=== PATIENT | female | born 1985 | race Caucasian/White ===

== ENCOUNTER 2021-08-01 20:47 | Outpatient (CLI) | payer BC, SELFPAY ==
[2021-08-01 21:04] VITALS: BP 118/76; PULSE 61; RESP 18; TEMP 36.9; O2SAT 98; BMI 27.4
== END 2021-08-01 21:55 | disposition home or self-care (01) ==
LOC: OBOUT 20:54 → OB 20:55
PROVIDERS: PCP Obstetrics & Gynecology; Visit Provider Obstetrics & Gynecology
DX: O26.893 Other specified pregnancy related conditions, third trimester (principal); Z3A.36 36 weeks gestation of pregnancy; M25.512 Pain in left shoulder; M25.552 Pain in left hip; W10.9XXA Fall (on) (from) unspecified stairs and steps, initial encounter
CPT/HCPCS: 59025; G0463

== ENCOUNTER 2021-08-01 22:01 | Emergency (ER) | payer BC, SELFPAY ==
[2021-08-01 22:02] VITALS: BP 118/73; PULSE 74; RESP 18; TEMP 36.5; O2SAT 100; BMI 29.9
--- NOTE | 2021-08-01 22:43 | XR_ITS ---
PROCEDURE INFORMATION: Exam: XR Left Shoulder Exam date and time: 08/01/2021 10:43 PM Age: 35 years old Clinical indication: Injury or trauma; Fall; Blunt trauma (contusions or hematomas); Shoulder; Left; Injury date: 08/01/2021; Additional info: Fall pain left shoulder TECHNIQUE: Imaging protocol: XR Left shoulder. Views: 2 or more views. Total images: 3 COMPARISON: No relevant prior studies available. FINDINGS: Bones/joints: Mild-moderate leftward convexity upper thoracic scoliosis. No fractures. Glenohumeral alignment is normal. A.C. joint alignment is normal. No blastic or lytic lesions. Adjacent ribs and lung parenchyma are unremarkable. Pleural space: No visible pleural effusion or pneumothorax. Soft tissues: No gross soft tissue abnormalities. IMPRESSION: 1. No acute findings. 2. Mild-moderate leftward convexity upper thoracic scoliosis.
--- NOTE | 2021-08-01 23:10 | XR_ITS ---
PROCEDURE INFORMATION: Exam: XR Chest Exam date and time: 08/01/2021 11:10 PM Age: 35 years old Clinical indication: Left-sided; Patient HX: Fell pain left shoulder/left chest; Additional info: Fall TECHNIQUE: Imaging protocol: XR of the chest. Views: 2 views. Total images: 2 COMPARISON: CR XR SHOULDER LT MIN 2V 08/01/2021 10:40 PM FINDINGS: Lungs: Normal pulmonary expansion. Pulmonary vasculature grossly normal. No gross pulmonary infiltrates or edema pattern. Pleural spaces: No pleural effusion. Minimal apical pleural thickening bilaterally. No pneumothorax. Heart/Mediastinum: Heart size normal. No tracheal/mediastinal shift. Bones/joints: No acute osseous abnormalities are identified. Mild-moderate leftward convexity upper thoracic scoliosis. IMPRESSION: No acute thoracic process.
--- NOTE | 2021-08-01 23:16 | HMH.EDFALL ---
ED Disposition Clinical Impression: Pain in scapula Qualifiers: Weeks of gestation: 36 weeks Qualified Code(s): Z3A.36 - 36 weeks gestation of Disposition: Home, Self-Care Condition on Discharge: Good Instructions: DI for Shoulder Pain Additional Instructions: ice and call ob in am Referrals: Provider,Referral, [Primary Care Provider] - - Critical Care Critical Care Time: No Attestation: On 08/01/21, the high probability of a clinically significant, sudden or life threatening deterioration of the following system(s) required my full and direct attention, intervention and personal management. The time I documented below is in addition to time spent performing reported procedures but includes the following listed in this critical care notation. Medical Decision Making - Medical Records Medical records reviewed: Yes: I reviewed the patient's medical records. - Dangelo Inquiry Pt receiving controlled substance: No Vital Signs: 08/01/21 22:02 Temperature 97.7 F Temperature Source Oral Pulse Rate [Left] 74 Respiratory Rate 18 Blood Pressure [Right Arm] 118/73 Blood Pressure Mean [Right Arm] 88 02 Sat by Pulse Oximetry 100 Oxygen Delivery Method Room Air - Lab Data Lab results reviewed: Yes: I reviewed the patient's lab results. Orders (Tests/Meds): ORDERS Category Date Time Status Chest XR 2 view (NOT portable) [XR chest 2V] Stat Exams 08/01/21 23:10 Taken XR shoulder LT min 2V Stat Exams 08/01/21 22:43 Taken - Radiology Data #1 Image(s): Chest, Shoulder Image Reviewed: Yes I have reviewed radiologist's interpretation Preliminary Findings: No Fracture Seen Medical Decision Narrative: was seen by ob and stable exam and xrays - conservative treatment at this time Fall HPI - General Chief Complaint: Extremity Injury, Upper Stated Complaint: Preg Fell 08/01 L arm shoulder Time Seen by Provider: 08/01/21 23:17 Mode of Arrival: EMS Source of Information: Patient, EMS, Medical Record Limitations: No Limitations Description of Symptoms (Recalled from ER Triage Doc. by RN): pt was brought in by ems taken to OB for clearance then brought here for evaluation of the left shoulder after fall off stairs pt reports to have slipped and fallen on her back hurt her left shoulder and hip. pt is 36 week 5 days . - History of Present Illness HPI Narrative: pt with trip type fall and has lt scapular pain complaint: fall Onset (ago): hour(s) Fall from: walking Fall witnessed: yes, by family Place fall occurred: home Loss of consciousness: none Prolonged down time: no Context: tripped/slipped Location of injury: chest Location of injury - extremities: Left: shoulder Severity: moderate Associated symptoms (after fall): denies - Related Data Home Medications Medication Instructions Recorded Confirmed Insulin Lispro [Humalog] 6 units SQ BID 08/01/21 08/01/21 Allergies Allergy/AdvReac Type Severity Reaction Status Date / Time No Known Allergies Allergy Verified 08/01/21 21:46 [facility] History - Hepatitis A Screen Drug use history?: No High risk sexual behaviors?: No History of sexually transmitted infection?: No Currently employed?: No Childcare worker?: No Do you have indoor plumbing?: Yes Do you have electricity?: Yes Attestation statement:: This patient has been screened for Hepatitis A risk factors. I have reviewed the patient's past medical history: Yes Other Surgeries: No: - Social History Occupational Status: employed Para: 2 ROS Obtained: Yes All systems reviewed & no additional complaints - Constitutional Constitutional: Denies fever(s) - Eyes Eyes: Denies change in vision - ENT Ears, Nose, Mouth, and Throat: Denies sore throat - Cardiovascular Cardiovascular: Denies chest pain - Respiratory Respiratory: Denies shortness of breath - Gastrointestinal Gastrointestingal: Denies: abdominal
[2021-08-02 00:31] VITALS: BP 118/73; PULSE 88; RESP 16; TEMP 36.7; O2SAT 99
== END 2021-08-02 00:34 | disposition home or self-care (01) ==
PROVIDERS: Emergency Provider Emergency Medicine
DX: M25.512 Pain in left shoulder (principal); Z3A.36 36 weeks gestation of pregnancy; W10.9XXA Fall (on) (from) unspecified stairs and steps, initial encounter; Y92.019 Unspecified place in single-family (private) house as the place of occurrence of the external cause
CPT/HCPCS: 71046; 73030; 99282

== ENCOUNTER 2023-11-14 07:06 | Outpatient (CLI) | payer OTHER, SELFPAY ==
[2023-11-14 07:43] LABS: Basophils # 0.1 K/mm3 (0-0.2); Eosinophils # 0.1 K/mm3 (0.0-0.4); Eosinophils % 2.1 % (0.1-12.0); Hematocrit 44.6 % (37.0-47.0); Hemoglobin 14.3 g/dL (12.2-16.2); Lymphocytes # 1.5 K/mm3 (0.7-4.5); Lymphocytes % 24.6 % (10-50); Mean Corpuscular HGB Conc 32.1 g/dL (31.8-35.4); Mean Corpuscular Hemoglobin 31.2 pg (27.0-31.2); Mean Corpuscular Volume 97.2 fl (81-99); Mean Platelet Volume 8.7 fl (7.4-10.4); Monocytes # 0.3 K/mm3 (0.1-1.0); Monocytes % 5.7 % (1.7-9.3); Neutrophils % 66.5 % (37.0-80.0); Platelet Count 298 K/mm3 (142-424); Red Blood Count 4.59 M/mm3 (4.20-5.40); Red Cell Distribution Width 13.1 % (11.5-17.5); White Blood Count 5.9 K/mm3 (4.8-10.8)
[2023-11-14 07:58] LABS: Alanine Aminotransferase 14 U/L (12-78); Albumin/Globulin Ratio 1.5 (1.1-1.8); Alkaline Phosphatase 55 U/L (38-126); Anion Gap 10.3 mEq/L (5-15); Aspartate Amino Transferase 22 U/L (14-36); Bilirubin,Total 0.5 mg/dl (0.2-1.3); Blood Urea Nitrogen 12 mg/dl (7-17); Carbon Dioxide 28 mmol/L (22.0-30.0); Chloride 106 mmol/L (98-107); Estimated Glomerular Filt Rate 80 ml/min (>60); GFR (African American) 97 ML/MIN (>60); Globulin 2.6 g/dL (1.3-3.2); Glucose 88 mg/dl (74-100); Potassium 4.3 mmoL/L (3.5-5.1); Sodium 140 mmol/L (136-145); Total Protein,Serum 6.6 g/dl (6.3-8.2)
[2023-11-14 08:04] LABS: C-Reactive Protein 0.7 mg/L (0-4)
[2023-11-14 12:29] LABS: Iron 83 ug/dL (37-170)
[2023-11-14 12:39] LABS: Total Iron Binding Capacity 335 ug/dL (265-497)
[2023-11-14 16:04] LABS: Ferritin 18.3 ng/ml (6.24-137)
[2023-11-17 10:13] LABS: QuantiFERON-TB Gold Plus Negative (Negative)
== END 2023-11-14 23:59 ==
LOC: LAB 07:09
PROVIDERS: Visit Provider Dietitian, Registered
DX: K50.813 Crohn's disease of both small and large intestine with fistula (principal); Z86.39 Personal history of other endocrine, nutritional and metabolic disease
CPT/HCPCS: 36415; 80053; 82728; 83540; 83550; 85025; 86140; 86480

== ENCOUNTER 2024-03-28 07:35 | Outpatient (CLI) | payer OTHER, SELFPAY ==
[2024-03-28 08:20] LABS: Basophils # 0.1 K/mm3 (0-0.2); Eosinophils # 0.2 K/mm3 (0.0-0.4); Eosinophils % 2.7 % (0.1-12.0); Hematocrit 37.6 % (37.0-47.0); Hemoglobin 14.5 g/dL (12.2-16.2); Lymphocytes # 1.4 K/mm3 (0.7-4.5); Lymphocytes % 25.8 % (10-50); Mean Corpuscular HGB Conc 38.4 g/dL (31.8-35.4); Mean Corpuscular Volume 96.2 fl (81-99); Mean Platelet Volume 8.5 fl (7.4-10.4); Monocytes # 0.4 K/mm3 (0.1-1.0); Neutrophils # 3.5 K/mm3 (1.8-7.8); Neutrophils % 63.4 % (37.0-80.0); Platelet Count 297 K/mm3 (142-424); Red Blood Count 3.91 M/mm3 (4.20-5.40); Red Cell Distribution Width 13.1 % (11.5-17.5); White Blood Count 5.5 K/mm3 (4.8-10.8)
[2024-03-28 11:10] LABS: Alanine Aminotransferase 13 U/L (12-78); Albumin Level 4.1 g/dl (3.5-5.0); Albumin/Globulin Ratio 1.4 (1.1-1.8); Alkaline Phosphatase 58 U/L (38-126); Anion Gap 14.3 mEq/L (5-15); Aspartate Amino Transferase 24 U/L (14-36); Bilirubin,Total 0.7 mg/dl (0.2-1.3); Blood Urea Nitrogen 14 mg/dl (7-17); Calcium 9.2 mg/dl (8.4-10.2); Carbon Dioxide 26 mmol/L (22.0-30.0); Chloride 103 mmol/L (98-107); Estimated Glomerular Filt Rate 80 ml/min (>60); GFR (African American) 97 ML/MIN (>60); Glucose 66 mg/dl (74-100); Potassium 4.3 mmoL/L (3.5-5.1); Sodium 139 mmol/L (136-145); Total Protein,Serum 7.1 g/dl (6.3-8.2)
[2024-03-28 11:15] LABS: C-Reactive Protein 1.6 mg/L (0-4)
[2024-03-30 17:11] LABS: QuantiFERON-TB Gold Plus Negative (Negative)
== END 2024-03-28 23:59 | disposition home or self-care (01) ==
PROVIDERS: Visit Provider Dietitian, Registered
DX: K50.813 Crohn's disease of both small and large intestine with fistula (principal); Z79.899 Other long term (current) drug therapy
CPT/HCPCS: 36415; 80053; 85025; 86140; 86480

== ENCOUNTER 2024-05-21 07:38 | Emergency (ER) | payer OTHER, SELFPAY ==
[2024-05-21 07:40] VITALS: BP 132/86; PULSE 98; RESP 16; TEMP 36.9; O2SAT 100; BMI 24.3
--- NOTE | 2024-05-21 07:45 | PC.NURSE ---
Dr. Marquez at [facility] for pt eval
--- NOTE | 2024-05-21 07:51 | HMH.EDGENADL ---
Discharge Plan Disposition Patient Disposition: Home, Self-Care Prescriptions Prescriptions: New ondansetron 4 mg tablet,disintegrating 4 mg PO Q6H PRN (Reason: nausea and vomiting) 5 Days Qty: 20 0RF nitrofurantoin monohyd/m-cryst 100 mg capsule 100 mg PO BID 5 Days Qty: 10 0RF Rx Instructions: must administer with a meal/food No Action insulin lispro 100 UNIT/ML cartridge 6 units SQ BID Referrals Follow up/Referrals: Provider,Referral, MD [Primary Care Provider] - See instructions Activity Restrictions/Add. Instructions Additional Instructions/Restrictions: Your symptoms are consistent with an uncomplicated urinary tract infection. If you develop a high fever or flank discomfort as discussed please return to the emergency department or with your primary care doctor as that may imply an ascending infection involving your kidneys which would warrant a different medication. Also if you have any significant worsening of your abdominal pain please seek further care. Clinical Impressions Clinical Impression: Nausea, UTI (urinary tract infection) Instructions Patient Instructions: DI for Urinary Tract Infection (UTI), DI for Urinary Tract Infection in Children Print Language Print Language: Croatian Discharge ED Provider: Jace Marquez General Adult HPI General Chief complaint: Urogenital-Female Stated complaint: possible UTI nausea dry heaving Time Seen by Provider: 05/21/24 07:44 Mode of Arrival: Ambulatory Source of Information: Patient Limitations: No Limitations Description of Symptoms (Recalled from ER Triage Doc. by RN): Patient reports she thinks that she has a UTI. States that she has urgency and nausea. History of Present Illness HPI narrative: Patient is a 38-year-old female presents today with what she believes is a urinary tract infection. She states that yesterday she began having some urinary urgency and some back discomfort. No significant pain but states that she has had some discomfort in the left lower back region. She has had some waves of nausea but no significant pain. Denies any dysuria frequency but states that her urinary urgency is different than normal. She has a history of Crohn's disease on Stelara but denies any significant abdominal pain diarrhea fevers chills etc. She also has a history of a hysterectomy. Related Data Home Medications ?Medication ?Instructions ?Recorded ?Confirmed insulin lispro 100 unit/mL 6 units SQ BID gestational diabetes 08/01/21 08/01/21 subcutaneous cartridge Previous Rx's ?Medication ?Instructions ?Recorded nitrofurantoin 100 mg PO BID 5 days #10 caps 05/21/24 monohydrate/macrocrystals 100 mg capsule ondansetron 4 mg disintegrating 4 mg PO Q6H PRN nausea and 05/21/24 tablet vomiting 5 days #20 tabs Allergies Allergy/AdvReac Type Severity Reaction Status Date / Time No Known Allergies Allergy Verified 08/01/21 21:46 [facility] Disclaimer: The information contained in this section may have been updated after the patient was seen, as this information can be updated by other users. Social History Smoking Status: Current every day smoker alcohol intake: never current occupational status: employed Travel in the last 8 weeks: None ROS Obtained: Yes All systems reviewed & no additional complaints except as documented Physical Exam General General appearance: alert Respiratory Respiratory exam: Present normal lung sounds bilaterally Cardiovascular Cardiovascular exam: Present regular rate Abdominal Exam Abdominal exam: Present soft; Absent distention or tenderness Back Exam Back exam: Absent CVA tenderness (R) or CVA tenderness (L) Neurological Exam Neurological exam: Present alert and oriented X3 Medical Decision Making Dangelo Inquiry Pt receiving controlled substance: No Vital Signs: 05/21/24 07:40 Temperature 98.4 F Temperature Source Oral Pulse Rate [Radial] 98 H Respiratory Rate 16 Blood Pressure [Right Arm] 132/86 Blood Pressure Mean [Right Arm] 101 Blood Pressure Source [Right Arm] Automatic Cuff Blood Pressure Position [Right Arm] Sitting 02 Sat by Pulse Oximetry 100 Oxygen Delivery Method Room Air Lab Data Lab results reviewed: Yes I reviewed the patient's lab results. Lab Results 05/21/24 07:42: Urine Color Yellow, Urine Appearance Cloudy, Urine pH 6.0, Ur Specific [place] >= 1.030, Urine Protein 1+ A, Urine Glucose (UA) Negative, Urine Ketones 2+, Urine Blood 3+ A, Urine Nitrate Negative, Urine Bilirubin 2+ A, Urine Urobilinogen 0.2, Ur Leukocyte Esterase 2+ A, Urine RBC 3-5, Urine WBC 20-50, Ur Squamous Epith Cells 10-20, Urine Bacteria 2+ Orders (Tests/Meds): ED MEDICATIONS Discontinued Medications Generic Name Dose Route Start Last Admin Trade Name Freq PRN Reason Stop Dose Admin Ondansetron HCl 4 mg 05/21/24 07:49 05/21/24 07:52 Ondansetron 4mg Odt SL 05/21/24 07:50 4 mg ONCE ONE Administration ORDERS Category Date Time Status POCUS Point of Care (ER Only) Stat Exams 05/21/24 08:19 Ordered UA [Urinalysis and Microscopic] Stat Lab 05/21/24 07:42 Completed Urine Culture Stat Micro 05/21/24 07:42 Received Medical Decision Narrative: Well-appearing nontoxic 38-year-old female with no evidence of sepsis clinically presents today with lower back discomfort and urinary urgency most likely a urinary tract infection. Abdominal exam is benign will this could be intra-abdominal pathology this is unlikely at the moment will not work this up further. I do not believe this is a Crohn's exacerbation, bowel obstruction etc. She does not have any fever or CVA tenderness does not appear to have renal involvement at this point. Urinalysis is pending will reassess. Urinalysis returned and is consistent with a urinary tract infection. There is significant hematuria I did a limited bedside ultrasound to make sure there is not a significant hydronephrosis which that was not making infected kidney stone very unlikely. This will be treated as uncomplicated urinary tract infection. Zofran prescription also sent. Patient tolerating p.o. well-appearing nontoxic upon being discharged. Procedures Miscellaneous Procedure Procedure Performed: Limited renal ultrasound Indication: A focused ultrasound of the kidneys was performed to evaluate for hydronephrosis and nephrolithiasis. The ultrasound was performed with the following indications, as noted in the H&P: Hematuria Identified structures: Left kidney Findings: No evidence of hydronephrosis Impression: Normal left kidney Images were saved to permanent archive The study was technically adequate CPT: 41747-70 This study was performed by me, and I personally interpreted all images/videos. Based on my clinical judgement, these images were adequate and did not necessitate further imaging. Critical Care Critical Care Time Critical Care Time: No
[2024-05-21] MEDS: ONDANSETRON 4MG ODT 4 MG SL (07:52)
[2024-05-21 07:56] LABS: Microscopic, Urine URINE MICROSCOPIC (MICROSCOPIC)
[2024-05-21 07:58] LABS: Appearance,Urine CLOUDY (Clear); Blood, Urine 3+ (Negative); Color,Urine YELLOW (Yellow); Glucose,Urine (UA) Negative (Negative); Ketones,Urine 2+ (Negative); Leukocyte Esterase,Urine 2+ (Negative); Nitrate,Urine Negative (Negative); Protein,Urine 1+ (Negative); Specific Gravity, Urine >= 1.030 (1.005-1.030); Urobilinogen,Urine 0.2 EU/dl (0.2)
[2024-05-21 08:00] VITALS: BP 118/77; PULSE 87; O2SAT 99
[2024-05-21 08:17] LABS: Bilirubin,Urine 2+ (Negative)
[2024-05-21 08:18] LABS: Bacteria,Urine 2+ /lpf; WBC,Urine 20-50 #/hpf (0-3)
[2024-05-21 08:32] VITALS: BP 118/77; PULSE 69; RESP 16; TEMP 36.9; O2SAT 99
--- NOTE | 2024-05-22 09:42 | PC.NURSE ---
discussed urine culture with , pt dc with macrobid, ntd
== END 2024-05-21 08:32 | disposition home or self-care (01) ==
PROVIDERS: Emergency Provider Student in an Organized Health Care Education/Training Program
DX: N39.0 Urinary tract infection, site not specified (principal); B96.29 Other Escherichia coli [E. coli] as the cause of diseases classified elsewhere; R11.0 Nausea; R39.15 Urgency of urination
CPT/HCPCS: 81001; 87086; 87088; 87186; 99284; Q0162

== ENCOUNTER 2025-02-09 15:49 | Emergency (ER) | payer OTHER, SELFPAY ==
--- NOTE | 2025-02-09 15:52 | ED_ITS ---
<Statement entered by Jace Marquez MD - 02/09/25 23:25> I was consulted by the KETTY, and we discussed the complexity of the problems being addressed. I approved the treatment and management plan for this patient's care in the emergency department, thus performing a substantive portion of the medical decision making. Jace Marquez MD, JACE, FACEP Discharge Plan Disposition Patient Disposition: Home, Self-Care Condition: Good Prescriptions Prescriptions: No Action insulin lispro 100 UNIT/ML cartridge 6 units SQ BID ondansetron 4 mg tablet,disintegrating 4 mg PO Q6H PRN (Reason: nausea and vomiting) 5 Days Qty: 20 0RF nitrofurantoin monohyd/m-cryst 100 mg capsule 100 mg PO BID 5 Days Qty: 10 0RF Rx Instructions: must administer with a meal/food Referrals Follow up/Referrals: Provider,Referral, [Primary Care Provider, Medical] - See instructions Activity Restrictions/Add. Instructions Additional Instructions/Restrictions: As we discussed please keep your area clean dry and covered. Do not get your hand wet for at least 24 hours. After that it is okay. If you have any new or worsening signs or symptoms or begins rebleeding you may return to the emergency department as needed. Clinical Impressions Clinical Impression: Avulsion of finger tip Qualifiers: Encounter type: initial encounter Qualified Code(s): S61.209A - Unspecified open wound of unspecified finger without damage to nail, initial encounter Instructions Patient Instructions: DI for Laceration Repair Print Language Print Language: Hungarian Discharge ED Provider: Jace Marquez General Adult HPI General Chief complaint: Wound/Laceration Stated complaint: AO 6-1 Cut right ring finger Time Seen by Provider: 02/09/25 15:52 History of Present Illness HPI narrative: Patient presents for evaluation of a laceration to her right fourth finger. Patient was using a knife to cut food and sliced off the tip of her right fourth finger. She did not get into the nailbed or matrix. However she was unable to control the bleeding so they came to the emergency department for evaluation. Patient denies any numbness tingling loss of motor or sensory. Related Data Home Medications ?Medication ?Instructions ?Recorded ?Confirmed insulin lispro 100 unit/mL 6 units SQ BID gestational diabetes 08/01/21 08/01/21 subcutaneous cartridge Previous Rx's ?Medication ?Instructions ?Recorded nitrofurantoin 100 mg PO BID 5 days #10 cap s 05/21/24 monohydrate/macrocrystals 100 mg capsule ondansetron 4 mg disintegrating 4 mg PO Q6H PRN nausea and 05/21/24 tablet vomiting 5 days #20 tabs Allergies Allergy/AdvReac Type Severity Reaction Status Date / Time No Known Allergies Allergy Verified 08/01/21 21:46 [facility] Disclaimer: The information contained in this section may have been updated after the patient was seen, as this information can be updated by other users. Social History (Updated 05/21/24 @ 08:27 by Jace Marquze MD) Smoking Status: Current every day smoker alcohol intake: never current occupational status: employed Travel in the last 8 weeks?: None Have you lived/traveled outside US in past 30 days?: No Contact w/someone who lives/traveled outside US past 30 days?: No Exposure to someone with infectious disease in past 14 days?: No Do you have a fever (greater than 100.4 F or 38 C)?: No Have you tested positive for COVID-19?: No Exposed to someone with COVID-19 in past 14 days?: No Do you have a sore throat?: No Do you have a cough?: No Do you have any weakness?: No Do you have any diarrhea?: No Are you experiencing any unusual bleeding?: No Do you have any muscle aches/pain?: No Do you have any abdominal pain?: No Are you experiencing loss of taste or smell?: No Other Medical History Have you received the Flu Vaccine for this season: Yes Have you received the Pneumonia Vaccine: No ROS Obtained: Yes Systems reviewed as appropriate & no additional complaints except as documented Physical Exam General General appearance: alert and in no apparent distress Respiratory Respiratory exam: Present normal lung sounds bilaterally Cardiovascular Cardiovascular exam: Present regular rate Neurological Exam Neurological exam: Present alert and oriented X3 Medical Decision Making Medical Records Screening: Per USPSTF and CDC recommendations, given the prevalence of disease in our region, it is our hospital?s policy to screen for HIV and viral Hepatitis for all patients aged 18 and over and those with ongoing risk factors. Dangelo Inquiry Pt receiving controlled substance: No Vital Signs: 02/09/25 15:56 Temperature 97.9 F Temperature Source Oral Pulse Rate [Left Radial] 96 H Respiratory Rate 20 Blood Pressure [Right Arm] 131/78 Blood Pressure Mean [Right Arm] 95 02 Sat by Pulse Oximetry 99 Oxygen Delivery Method Room Air Orders (Tests/Meds): ED MEDICATIONS Generic Name Dose Route Start Last Admin Trade Name Freq PRN Reason Stop Dose Admin Lidocaine/Epinephrine 3 ml 02/09/25 16:20 Lidocaine 1% W/Epi 1:100,000 20ml Vial SQ 02/09/25 16:21 ONCE ONE Tetanus/Reduced Diphtheria/Acell Pertussis 0.5 ml 02/09/25 16:20 Tet/Diphth/Pert-Adult 0.5ml Syringe IM 02/09/25 16:21 .ONCE ONE Discontinued Medications Generic Name Dose Route Start Last Admin Trade Name Freq PRN Reason Stop Dose Admin Silver Nitrate 1 each 02/09/25 16:10 Silver Nitrate Applicator TP 02/09/25 16:11 ONCE ONE Medical Decision Narrative: In summary patient is a 39-year-old female who presents to the emergency department for evaluation of right fourth finger laceration. Patient is hemodynamically stable upon arrival, afebrile. Physical exam is remarkable for a laceration to the very distal tip of her right fourth finger. The laceration is perpendicular to the length of the finger there is no bony exposure however the distal fat pad is visible. Patient is neurovascularly intact nailbed is intact she has full range of motion. Differential diagnosis includes possible open fracture etc. however there is no red flags and to suggest that this is anything other than a simple superficial laceration thus alternative diagnosis is were not pursued. Initial workup was considered with imaging however again there are no red flags to suggest deeper involvement thus no further workup is required. I initially tried to control bleeding with direct pressure however patient could not tolerate it due to pain. Then infiltrated 3 cc of lidocaine with epinephrine and once we had adequate anesthesia I was able to slow down bl eeding with direct pressure however not enough. I then attempted Surgicel which would was not able to achieve hemostasis and ultimately I had to use a silver nitrate stick and finally was able to control the bleeding. Once hemostasis was achieved I then placed Surgicel on top of it and applied a dry dressing that was nonocclusive. Thus patient is appropriate for discharge after her Tdap has been updated she was given wound care and strict return precautions. Procedures Laceration Laceration 1: Site: finger (Right fourth) Side (If applicable): right Size (cm): 0.05 Description: other (Fingertip avulsion) Depth: simple, single layer and involves subcutaneous layer Local Anesthetic: lidocaine 1% and with epi Amount of anesthesia used (mL): 3 Pre-repair: wound explored, irrigated extensively and deep structures intact Skin layer closed with: other (Silver nitrate fulguration) Critical Care Critical Care Time Critical Care Time: No
[2025-02-09 15:56] VITALS: BP 131/78; PULSE 96; RESP 20; TEMP 36.6; O2SAT 99; BMI 23.6
[2025-02-09] MEDS: SILVER NITRATE APPLICATOR 1 EACH TP (16:25)
[2025-02-09] MEDS: TET/DIPHTH/PERT-ADULT 0.5ML SYRINGE 0.5 ML IM (16:32)
[2025-02-09] MEDS: LIDOCAINE 1% W/EPI 1:100,000 20ML VIAL 3 ML SQ (16:35)
[2025-02-09 16:39] VITALS: BP 140/78; PULSE 80; RESP 20; TEMP 36.8; O2SAT 98
== END 2025-02-09 16:40 | disposition home or self-care (01) ==
PROVIDERS: Emergency Provider Student in an Organized Health Care Education/Training Program
DX: S61.204A Unspecified open wound of right ring finger without damage to nail, initial encounter (principal); W26.0XXA Contact with knife, initial encounter; Z23 Encounter for immunization
CPT/HCPCS: 17250; 90471; 90715; 99283

== ENCOUNTER 2025-02-20 13:58 | Outpatient (CLI) | payer OTHER, SELFPAY ==
--- OUTSIDE RECORDS SUMMARY | 2025-01-22 13:20 | XMS_ITS | Encounter Summary ---
Author Organization [facility] Address [address] [place] [address] Care Team Providers Care Front Line Supervisor Name Role Phone Jayson Hoyt Primary Care Provider Reason for Referral * Imaging (Routine) - Pending Review Specialty Diagnoses / Procedures Referred By Shadi watson Referred To Contact Gastroenterology Diagnoses Crohn's disease of both small and large intestine with fistula (CMS/HCC) Long-term current use of ustekinumab History of resection of terminal ileum Procedures Colonoscopy Mansi Méndez PA [address] [facility] [address] [place] [address] Phone: tel: fax: Referral ID Status Reason Start Date Expiration Date Visits Requested Visits Authorized [id number] Pending Review Specialty Services Required 01/22/2025 07/24/2026 1 1 * Consultation (Routine) - Authorized Specialty Diagnoses / Procedures Referred By Shadi watson Referred To Contact Diagnoses Crohn's disease of both small and large intestine with fistula (CMS/HCC) Mansi Méndez PA [address] [facility] [address] [place] [address] Phone: tel: fax: Referral ID Status Reason Start Date Expiration Date V isits Requested Visits Authorized [id number] Authorized 01/22/2025 07/24/2026 1 1 Reason for Visit * Reason Comments Crohn's Disease Encounter Details Date Type Department Care Team (Late st Contact Info) Description 01/22/2025 1:20 PM EDT Office Visit [facility] [address] [place] [address] Mansi Méndez PA [address] [place] [address] Crohn's disease of both small and large intestine with fistula (CMS/HCC) (Primary Dx); Long-term current use of ustekinumab; History of resection of terminal ileum; Low serum vitamin B12 Social History Tobacco Use Types Packs/Day Years Used Date Smoking Tobacco: Former Cigarettes 1 24 0 09/11/1994 - 09/11/2018 Passive Smoke Exposure: Past Smokeless Tobacco: Never Comments:Vapor Alcohol Use Standard Drinks/Week Comments No 0 (1 standard drink = 0.6 oz pur e alcohol) PHQ-2 Answer Date Recorded Patient Health Questionnaire-2 Score 0 01/22/2025 PHQ-9 Answer Date Recorded Patient Health Questionnaire-9 Score 0 01/22/2025 PHQ-2A Answer Date Recorded Depression Risk 0 10/18/2022 Comments No Sex and Gender Information Value Date Recorded Sex Assigned at Female 03/25/2021 6:04 AM EDT Legal Sex Female 6:39 PM EDT Gender Identity Female 03/25/2021 6:04 AM EDT Sexual Orientation Straight 05/27/2022 7: 26 AM EDT documented as of this encounter Last Filed Vital Signs Vital Sign Reading Time Taken Comments Blood Pressure - - Pulse - - Temperature - - Respiratory Rate - - Oxygen Saturation - - Inhaled Oxygen Concentration - - Weight 73.9 kg (163 lb) 01/22/2025 1:04 PM EDT Height 175.3 cm (5' 9 ) 01/22/2025 1:04 PM EDT Body Mass Index 24.07 01/22/2025 1:04 PM EDT documented in this encounter Functional Status * Over the past 2 weeks, how often have you been bothered by any of the following problems? Question Answer Date of Assessment Author Little interest or pleasure in doing things Not at all 01/22/2025 1:03 PM Rosy Borrego Feeling down, depressed, or hopeless Not at all 01/22/2025 1:03 PM Rosy Borrego Patient Health Questionnaire -2 Score 0 01/22/2025 1:03 PM Rosy Borrego * Question Answer Date of Assessment Author Trouble falling or staying asleep, or sleeping too much Not at all 01/22/2025 1:03 PM Rosy Borrego Feeling tired or having kaci le energy Not at all 01/22/2025 1:03 PM Rosy Borrego Poor appetite or overeating Not at all 01/22/2025 1: 03 PM Rosy Borrego Feeling bad about yourself - or that you are a failure or have let yourself or your family down Not at all 01/22/2025 1:03 PM MARTIT Rosy Reddy Trouble concentrating on thi ngs, such as reading the newspaper or watching television Not at all 01/22/2025 1:03 PM Rosy Borrego Moving or speaking so slowly that other people could have noticed? Or the opposite - being so fidgety or restless that you have been moving around a lot more than usual. Not at all 01/22/2025 1:03 PM Rosy Borrego Thoughts that you would be b dwight off or hurting yourself in some way Not at all 01/22/2025 1:03 PM Rosy Borrego Patient Health Questionnaire -9 Score 0 01/22/2025 1:03 PM Rosy Borrego * If you checked off any problems on this questionnaire so far, Question Answer Date of Assessment Author How difficult have these problems made it for you to do your work, take care of things at home, or get along with other people? Not difficult at all 01/22/2025 1:03 PM Rosy Borrego documented as of this encounter Miscellaneous Notes * Progress Notes - Mansi Méndez, GILMER - 01/22/2025 1:20 PM EDT Telehealth Visit Subjective Patient ID: Aleksandra Deleon is a 39 y.o. female. Chief Complaint Patient presents with Crohn's Disease HPI The following portions of the chart were reviewed this encounter and updated as appropriate: Tobacco Allergies Meds Problems Med Hx Surg Hx Fam Hx Ms. Deleon is a pleasant 39 y/o F with fistulizing/stricturing Crohn's disease involving the TI and cecum, which was diagnosed in ~ 2008. She is s/p ileo- cecectomy secondary to SBO 04/16/2014 and perianal fistula s/p seton. Initially tx with humira, was bad not to take, later on cimiza +/- imuran, lost insurance/moved. Later on entyvio, but did not respond, changed to Stelara 07/2019. She underwent colonoscopy 06/2020 showing active inflammation at anastomotic site. At that time, Stelara was increased to q4 weeks. S/p seton exchange 03/25/21 and debridement of anal fistula with Dr. Barron. S/p C-scope 08/18/21 c/b GDM. Had EUA with Dr. Chavez CRS in May 2022 with removal seton. Had lap Hyst in March 2022 Previously co vaginal flatus ordered MR Pelvis fistula protocol 12/04/23No evidence of rectovaginal fistulas. A likely focus of infection/inflammation of the anal gland with a possible developing abscess in the left posterior quadrant at approximately 5 o'clock. No sinus tract or fistula formation. Pt was given cipro flagyl and referral to CRS and had EUA 12/29/[address] Barron who noted: No abscess or fistula Recent labs noted at OSH: 12/04/23 negative TB gold C-scope 06/29/2020: - The examined portion of the ileum was normal. Biopsied. - Patent end-to-side ileo-colonic anastomosis, characterized by edema, erosion, friable mucosa and inflammation. Biopsied. - The entire examined colon is normal. Biopsied. A. TERMINAL ILEUM, BIOPSY: - NO DIAGNOSTIC ABNORMALITY. B. COLON, RANDOM BIOPSIES: - NO DIAGNOSTIC ABNORMALITY. C. ANASTOMOSIS, BIOPSY: - ACTIVE INFLAMMATION AND ULCERATION. - NO GRANULOMAS IDENTIFIED. RUQ US 10/20/21: No suspicious focal liver lesions are detected. Small lesion seen on recent CT is not clearly visualized on ultrasound. CTE 09/30/21: Eccentric mural thickening involving a loop of jejunum in the left posterior mid abdomen. No surrounding inflammation. No free or loculated fluid collections. Small hepatic hypodensity, slightly larger than on 06/26/2020. This may represent a small cyst. This could be further assessed with ultrasound. EGD 08/08/22 Overall Impression: The esophagus appeared normal. Z-line 35 cm from the incisors 3 cm hiatal hernia. No evidence of Zack ulcers. The stomach appeared normal. The duodenal bulb and 2nd part of the duodenum appeared normal. Performed random biopsy using biopsy forceps to rule out celiac disease. C-scope 08/08/22 excellent prep The neoterminal ileum appeared normal. Performed random biopsy using biopsy forceps. The entire colon appeared normal. Healthy end-to-side ileocolonic anastomosis A. DUODENUM, BIOPSY: - NO PATHOLOGIC ABNORMALITY - NO EVIDENCE OF VILLOUS ABNORMALITY OR INTRAEPITHELIAL LYMPHOCYTOSIS B. SMALL INTESTINE, NEOTERMINAL ILEUM, BIOPSY: - NO PATHOLOGIC ABNORMALITY; NO EVIDENCE OF IBD (HISTORY OF CROHN DISEASE) - NEGATIVE FOR DYSPLASIA OR GRANULOMAS Recently had bidirectional d/t ROYCE, no concerning findings. Not taking oral iron much, thinks ROYCE d/t heavy menses now s/p LIA in March 2023 Good compliance w/ Stelara q 4wk, Today: remains on Stelara q 4wk Insurance requires biosimilar soon Having BM daily. Dairy and salads can trigger BM/ pudding to watery like stool. No melena or hematochezia No abd pain, NV. No recurrent infections or fevers. No rectal pain or discharge. No passage of air vaginally Appetite good, wt stable. Good about compliance with B12 IM and notes more energy. No dysphagia. Had a brief episodes of reflux lately. Stopped smoking, now vapes. Review of Systems Constitutional: Negative for fever and unexpected weight change. HENT: Negative for mouth sores and sore throat. Respiratory: Negative for shortness of breath. Cardiovascular: Negative for chest pain. Gastrointestinal: Positive for diarrhea (if eats trigger). Negative for abdominal pain, blood in stool, nausea and vomiting. Musculoskeletal: Negative for arthralgias. Skin: Negative for rash. Objective Physical Exam General Appearance: appears comfortable, NAD, alert HENT: AT/NC Eyes: no scleral icterus Pulmonary: no cough or audible wheezing, respirations unlabored MSK- active ROM upper extremities Integumentary: no jaundice Neurological: face is symmetric, speech is clear, responds appropriately to questions Psych: calm, appropriate affect Visit Vitals Ht 1.753 m (5' 9 ) Wt 73.9 kg (163 lb) BMI 24.07 kg/m?? Tb gold 03/28/24 negative. Alb, cr, hgb, crp wnl. Assessment/Plan Diagnoses and all orders for this visit: Crohn's disease of both small and large intestine with fistula (CMS/HCC) - Quantiferon TB Gold Plus; Future - C-Reactive Protein, Plasma; Future - Comprehensive Metabolic Panel, Plasma; Future - Calprotectin, Fecal by Immunoassay; Future - CBC and Differential; Future - Follow Up GI; Future - Colonoscopy; Future Long-term current use of ustekinumab - Quantiferon TB Gold Plus; Future - C-Reactive Protein, Plasma; Future - Comprehensive Metabolic Panel, Plasma; Future - Calprotectin, Fecal by Immunoassay; Future - CBC and Differential; Future - Colonoscopy; Future History of resection of terminal ileum - Colonoscopy; Future Low serum vitamin B12 - cyanocobalamin (Vitamin B-12) 1000 MCG/ML injection; Inject 1 mL into the muscle every 30 days. - Syringe/Needle, Disp, (BD Eclipse Syringe/Needle) 25G X 5/8 3 ML misc; 1 Syringe every 30 days. For IM B12 Ms. Deleon is a 39YO F with history of severe Crohn's disease, complicated by usman-anal fistula, s/p fistulectomy,hx of SBO 2014 s/p IC resection. MRE 11/22/22 No definite evidence of active bowel inflammation or penetrating disease. Patent ileocolonic anastomosis without evidence of active inflammation. continue Stelara injections q4 week, clinically doing well In past had c/o vaginal flatus (resolved) MR Pelvis fistula protocol 12/04/23No evidence of rectovaginal fistulas. A likely focus of infection/inflammation of the anal gland with a possible developing abscess in the left posterior quadrant at approximately 5 o'clock. No sinus tract or fistula formation. Pt was given cipro flagyl and referral to CRS , had EUA. 12/29/23 No abscess or fistula currently taking Cipro and Flagyl having some loose stools past couple of days. Will add on C diff in comp GI panel likely this adverse effect of antibiotic patient reports is mild small volume we stool. Routine monitoring of CMP/CBC w/diff on current drug therapy stelara q 4wk (will start biosimilar soon), monitoring liver/renal function as well as possible cytopenias- due for labs will order CMP/CBC/CRP and calprotectin - orders to be faxed to [facility] TB gold negative 03/28/2024- will order. labs 03/28/24 normal hgb, plt, cr, crp, hepatic function panel In endoscopic remission on c-scope 07/2022. 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 -Follow up with PCP for monitoring of small renal cysts noted on CT. had colonoscopy 08/08/22, Dr. Adam recommend a repeat colonoscopy in approximately 3 years. (Will order at follow up) Is rescheduled to see hepatology 08/22/24 for Hepatic cyst in the left hemiliver measuring 1.2 cm on imaging will let me know when does labs at [facility] Cscope in fall with IBD provider RTC via w mon-mon in 6months crohns. Sooner if needed Telehealth Statement Patient Verification Patient identity has been confirmed using name and date of ? Yes Authorizations and Agreements/Telemedicine Consent sent and consent confirmed? Yes Patient Location: Home/Other Patient confirms they are physically located in [place]? Yes If the patient is not physically located in [place], the provider has confirmed with [employer] thatthe provider is authorized to provide services in patient's stated location? N/A Provider Location: home Audio and video or audio only? Audio and video Total visit time: 20 minutes documented in this encounter Plan of Treatment Upcoming Encounters Date Type Department Care Team (Late st Contact Info) Description 07/25/2025 8:20 AM EST Office Visit [facility] Medicine Specialties [address] [place] [address] Mansi Méndez, GILMER [address] [place] [address] Scheduled Orders Name Type Priority Associated Diagnoses Orde r Schedule Quantiferon TB Gold Plus Lab Routine Crohn's disease of both small and large intestine with fistula (CMS/HCC) Long-term current use of ustekinumab Expected: 01/22/2025 (Approximate), Expires: 07/25/2026 C-Reactive Protein, Plasma Lab Routine Crohn's disease of both small and large intestine with fistula (CMS/HCC) Long-term current use of ustekinumab Expected: 01/22/2025 (Approximate), Expires: 07/25/2026 Comprehensive Metabolic Panel, Plasma Lab Routine Crohn's disease of both small and large intestine with fistula (CMS/HCC) Long-term current use of ustekinumab Expected: 01/22/2025 (Approximate), Expires: 07/25/2026 Calprotectin, Fecal by Immunoassay Lab Routine Crohn's disease of both small and large intestine with fistula (CMS/HCC) Long-term current use of ustekinumab Expected: 01/22/2025 (Approximate), Expires: 07/25/2026 CBC and Differential Lab Routine Crohn's disease of both small and large intestine with fistula (CMS/HCC) Long-term current use of ustekinumab Expected: 01/22/2025 (Approximate), Expires: 07/25/2026 Colonoscopy Endoscopy Routine Crohn's disease of both small and large intestine with fistula (CMS/HCC) Long-term current use of ustekinumab History of resection of terminal ileum Expected: 01/22/2025, Expires: 01/22/2026 Scheduled Referrals Name Type Priority Associated Diagnoses Orde r Schedule Follow Up GI Outpatient Referral Routine Crohn's disease of both small and large intestine with fistula (CMS/HCC) Expected: 07/25/2025, Expires: 02/22/2026 documented as of this encounter Visit Diagnoses Diagnosis Crohn's disease of both small and large intestine with fistula (CMS/HCC)- Primary Long-term current use of ustekinumab History of resection of terminal ileum Low serum vitamin B12 documented in this encounter Additional Health Concerns Assessment Noted Time PHQ-9 Depression Total Score: 0 01/23/20 25 1:03 PM EDT A fall risk assessment has been complete d for the patient 01/22/2025 1:04 PM EDT A Body Mass Index follow-up plan has been documented for the patient 01/23/2025 12:43 PM EDT documented as of this encounter Care Teams Front Line Supervisor Relationship Specialty Start Date End Date Jayson Hoyt PA [address] [place] [address] PCP - General 01/22/21 documented as of this encounter
[2025-02-20 14:34] LABS: Basophils % 0.4 % (0.1-2.0); Eosinophils # 0.1 Kmm3 (0.0-0.4); Eosinophils % 0.7 % (0.1-12.0); Hematocrit 43.2 % (37.0-47.0); Hemoglobin 14.5 g/dL (12.2-16.2); Immature Granulocytes # 0.02 10^3uL; Immature Granulocytes % 0.2 %; Lymphocytes # 1.5 K/mm3 (0.7-4.5); Lymphocytes % 16.2 % (10-50); Mean Corpuscular HGB Conc 33.6 g/dL (31.8-35.4); Mean Corpuscular Hemoglobin 31.4 pg (27.0-31.2); Mean Corpuscular Volume 93.5 fl (81-99); Mean Platelet Volume 10.3 fl (7.4-10.4); Monocytes # 0.6 K/mm3 (0.1-1.0); Monocytes % 5.8 % (1.7-9.3); Neutrophils # 7.3 K/mm3 (1.8-7.8); Neutrophils % 76.7 % (37.0-80.0); Nucleated Red Blood Cells # 0 10^3/uL; Nucleated Red Blood Cells % 0 %; Platelet Count 319 K/mm3 (142-424); Red Blood Count 4.62 M/mm3 (4.20-5.40); Red Cell Distribution Width 12.3 % (11.5-17.5); Red Cell Distribution Width-SD 41.9 fL; White Blood Count 9.5 K/mm3 (4.8-10.8)
--- OUTSIDE RECORDS SUMMARY | 2025-02-20 14:52 | XMS_ITS | Encounter Summary ---
Author Organization [facility] Address [address] [place] [address] Care Team Providers Care Manager Of Software Name Role Phone Jayson Hoyt Primary Care Provider Encounter Details Date Type Department Care Team (Latest Contact Info) Description 01/22/2025 Travel Social History Tobacco Use Types Packs/Day Years [...] AM EDT documented as of this encounter Functional Status * Over the past 2 weeks, how often have you been bothered by any of the following problems? Question Answer Date of Assessment Author Little interest or pleasure in doing things Not at all 01/22/2025 1:03 PM EDT Rosy Elena Feeling down, depressed, or hopeless Not at all 01/22/2025 1:03 PM EDT Rosy Elena Patient Health Questionnaire -2 Score 0 01/22/2025 1:03 PM EDT Rosy Elena * Question Answer Date of Assessment Author Trouble falling or staying asleep, or sleeping too much Not at all 01/22/2025 1:03 PM Rosy Borrego Feeling tired or having kaci le energy Not at all 01/22/2025 1:03 PM EDT Rosy Elena Poor appetite or overeating Not at all 01/22/2025 1: 03 PM EDT Rosy Elena Feeling bad about yourself - or that you are a failure or have let yourself or your family down Not at all 01/22/2025 1:03 PM EDT Rosy Reddy Trouble concentrating on thi ngs, such as reading the newspaper or watching television Not at all 01/22/2025 1:03 PM MARTIT Rosy Elena Moving or speaking so slowly that other [...] Rosy Borrego documented as of this encounter Plan of Treatment Upcoming Encounters Date Type Department Care Team (Late st Contact Info) Description 07/25/2025 8:20 AM EST Office Visit [facility] Medicine Specialties [address] [place] [address] Mansi Méndez M, GILMER [address] [place] [address] documented as of this encounter Visit Diagnoses Not on filedocumented in this encounter Additional Health Concerns Assessment Noted Time PHQ-9 Depression Total Score: 0 01/23/20 25 1:03 PM EDT A fall risk assessment has been complete d for the patient 01/22/2025 1:04 PM EDT A Body Mass Index follow-up plan has been documented for the patient 01/23/2025 12:43 PM EDT documented as of this encounter Care Teams Manager Of Software Relationship Specialty Start Date End Date Jayson Hoyt PA [address] [place] [address] PCP - General 01/22/21 documented as of this encounter
--- OUTSIDE RECORDS SUMMARY | 2025-02-20 14:52 | XMS_ITS | Encounter Summary ---
Author Organization Healthcare Address [address] [place] [address] Care Team Providers Care Internet Sourcer Name Role Phone Jayson Hoyt Primary Care Provider Reason for Visit * Reason Comments Med Refill Encounter Details Date Type Department Care Team (Late st Contact Info) Description 12/06/2021 Refill [facility] Medicine Specialties [address] [place] [address] Amadou Adam MD [address] [place] [address] Crohn's disease of both small and large intestine with fistula (CMS/HCC) Social History Tobacco Use Types Packs/Day Years Used Date Smoking Tobacco: Former Smokeless Tobacco: Never Comments:Vapor Alcohol Use Standard Drinks/Week Comments No 0 (1 standard drink = 0.6 oz pur e alcohol) PHQ-2 Answer Date Recorded Patient Health Questionnaire-2 Score 0 03/23/2021 Comments Yes Sex and Gender Information Value Date Recorded Sex Assigned at Female 03/25/2021 6:04 AM EDT Legal Sex Female 6:39 PM EDT Gender Identity Female 03/25/2021 6:04 AM EDT Sexual Orientation Straight 05/27/2022 7: 26 AM EDT documented as of this encounter Plan of Treatment Upcoming Encounters Date Type Department Care Team (Late st Contact Info) Description 07/25/2025 8:20 AM EST Office Visit [facility] Medicine Specialties [address] [place] [address] Mansi Méndez PA [address] [place] [address] documented as of this encounter Visit Diagnoses Diagnosis Crohn's disease of both small and large intestine with fistula (CMS/HCC) documented in this encounter Additional Health Concerns Infection Onset Date Last Indicated Resolved Time C. difficile 09/28/2021 09/28/2021 08/08/2022 9:14 AM EST Assessment Noted Time A fall risk assessment has been complete d for the patient 09/28/2021 7:48 AM EST documented as of this encounter Care Teams Internet Sourcer Relationship Specialty Start Date End Date Jayson Hoyt PA [address] [place] [address] PCP - General 01/22/21 documented as of this encounter
--- OUTSIDE RECORDS SUMMARY | 2025-02-20 14:52 | XMS_ITS | Encounter Summary ---
Author Organization Healthcare Address [address] [place] [address] Care Team Providers Care Rock Loader Name Role Phone Jayson Hoyt Primary Care Provider Reason for Visit * Reason Comments Med Refill Encounter Details Date Type Department Care Team (Late st Contact Info) Description 10/24/2021 Refill [facility] Medicine Specialties [address] [place] [address] Mansi Méndez PA [address] [place] [address] Crohn's disease of both small [...] Orientation Straight 05/27/2022 7: 26 AM EDT COVID-19 Exposure Response Date Recorded In the last month, have you been in contact with someone who was confirmed or suspected to have Coronavirus / COVID-19? No / Unsure 10/20/2021 7:14 AM EST documented as of this encounter Plan of Treatment Upcoming Encounters Date Type Department Care Team (Late st Contact Info) Description 07/25/2025 8:20 AM EST [facility] [address] [place] [address] Mansi Méndez PA [address] [place] [address] documented as of this encounter [...] documented as of this encounter Care Teams Rock Loader Relationship Specialty Start Date End Date Jayson Hoyt PA [address] [place] [address] PCP - General 01/22/21 documented as of this encounter
--- OUTSIDE RECORDS SUMMARY | 2025-02-20 14:53 | XMS_ITS | Encounter Summary ---
Author Organization Healthcare Address [address] 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 fistula (CMS/HCC) Social History Tobacco Use Types Packs/Day Years Used Date Smoking Tobacco: Former Cigarettes 1 - 2018 Passive Smoke Exposure: Past Smokeless Tobacco: Never Comments:Vapor Alcohol Use Standard Drinks/Week Comments No 0 (1 standard drink = 0.6 oz pur e alcohol) PHQ-2 Answer Date Recorded Patient Health Questionnaire-2 Score 0 04/25/2023 PHQ-2A Answer Date Recorded Depression Risk 0 10/18/2022 Comments No Sex and Gender Information Value Date Recorded Sex Assigned at Female 03/25/2021 6:04 AM EDT Legal Sex Female 6:39 PM EDT Gender Identity Female 03/25/2021 6:04 AM EDT Sexual Orientation Straight 05/27/2022 7: 26 AM EDT documented as of this encounter Miscellaneous Notes * Telephone Encounter - Salvatore Almanza, PharmD - 07/05/2023 8:37 AM EDT Per protocol, 1 medication(s), stelara, has been approved for 28 day supply with 5 refill(s) to [facility]. 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
--- OUTSIDE RECORDS SUMMARY | 2025-02-20 14:53 | XMS_ITS | Patient Health Record ---
Author Organization [facility] Address [address] [place] [address] Care Team Providers Care Web Support Engineer Name Role Phone Viv Merritt [phone] Allergies No Known Allergies Reason For Referral No Information Medications Medication SIG (Take, Route, Frequency, Duration) Notes Start Date End Date Status B12 Liquid Health Booster Active Bactrim DS 800-160 MG Tablet 1 tablet Orally Twice a day; Duration: 3 day(s) 04/02/2022 Active David Active Social History Tobacco Use: Social History Observation Description Date Details (start date - stop date) Never Smoker NA - NA Social History Drugs/Alcohol: Social Info Question Answer Notes Drugs Have you used drugs other than those for medical reasons in the past 12 months? No Steroid Use Have you used anabolic (body building) st eroids? No Alcohol Screen Did you have a drink containing alcohol in the past year? No Points 0 Interpretation Negative Tobacco Use: Social Info Question Answer Notes Tobacco Use/Smoking Are you a nonsmoker Problems Problem Type SNOMED Code ICD Code Onset Dates Problem Status W/U Status Risk Notes Problem Human papilloma virus deoxyribonucleic acid test positive, high risk on vaginal specimen (353610425794514) ASCUS with positive high risk HPV cervical (R87.810) 019 Active confirmed HPV positive Problem Third trimester (44177951) Supervision of other normal , third trimester (Z34.83) 021 Active confirmed Supervision of other normal , third trimester Problem Third trimester (20785224) Supervision of other normal , third trimester (Z34.83) 021 Active confirmed Encounter for supervision of other normal , third trimester Problem *Gestational diabetes mellitus in , Insulin controlled (Code also - Weeks of gestation Z3A) (O24.414) 021 Active confirmed Gestational diabetes mellitus in , insulin controlled Problem *Gestational diabetes mellitus in , Unspecified control (Code also - Weeks of gestation) (O24.419) 021 Active confirmed Gestational diabetes mellitus in , unspecified control Problem History and physical examination, follow-up (227839579) *Follow-up for Non-Malignant conditions (code also - acquired absence of organ (Z90.-) and identify personal hx malignant neoplasm (Z85.-)) (Z09) 021 Active confirmed Postoperative visit Problem Crohn's disease (95148502) Abdominal pain despite therapy for Crohn's disease (K50.90) 021 Active confirmed Crohn's disease Problem Obesity (273333074) ABNORMAL PAP (E66.9) Active confirmed Plan Of Treatment No Information Insurance Providers Payer Name Payer Address Payer Phone Subscriber Number Group Number Insured Name Patient Relationship to Insured Coverage Start Date Coverage End Date Jamar TOMLIN [address] [place] [address] [id number] PanchoSincereen Self - patient is the insured 2 Medical (General) History Medical History History ICD Code ASCUS HPV positive Crohn's disease with fistula abnormal pap HPV UTI Yeast Gestatinal diabetes Surgical History Surgery Date(Month/Year) Leep abdominal abcess surgery on intestine Hospitalization History Reason Date(Month/Year) C/S delivery. Baby girl Js Deleon. 2 night stay 08-18-21
--- OUTSIDE RECORDS SUMMARY | 2025-02-20 14:53 | XMS_ITS | Clinical Summary ---
Author Organization [facility] Address [address] [place] [address] Care Team Providers Care Customer Account Manager Name Role Phone Jayson Hoyt Primary Care Provider Allergies No known active allergies Medications ciprofloxacin (Cipro) 500 MG tabletIndicati ons:Crohn's disease of both small and large intestine with fistula (CMS/HCC) Take 1 tablet (500 mg) by mouth 2 (two) times a day. 28 tablet 12/04/19 24 Active Additional Information Patient not taking.Reported on 01/22/2025 ferrous gluconate (Fergon) 324 (38 Fe) MG tabletIndicati ons:History of iron deficiency TAKE 1 TABLET BY MOUTH 2 TIMES A WEEK. TAKE TWICE DAILY WITH FOOD AND 500MG VITAMIN C 180 tablet 02/16/20 24 Active ustekinumab (Stelara) injectionIndic ations:Crohn's disease of both small and large intestine with fistula (CMS/HCC) INJECT 1 SYRINGE SUBCUTANEOUSLY EVERY 4 WEEKS (REFRIGERATE, DO NOT FREEZE) 1 mL 5 09/03/20 24 Active cyanocobalamin (Vitamin B-12) 1000 MCG/ML injectionIndic ations:Low serum vitamin B12 Inject 1 mL into the muscle every 30 days. 3 mL 3 01/23/20 25 026 Active Syringe/Needle , Disp, (BD Eclipse Syringe/Needle ) 25G X 5/8 3 ML miscIndication s:Low serum vitamin B12 1 Syringe every 30 days. 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 INJECT DIRECTED 3 mL 3 07/03/20 24 025 Discontin ued(Reord er) Active Problems Problem Noted Date Diagnosed Date Iron deficiency anemia due to chronic blood loss 07/18/2022 Long-term current use of ustekinumab 09/28/2021 Crohn's colitis 03/25/2021 Perianal pain 06/26/2019 Crohn's disease 05/06/2014 Crohn's disease of both smal l and large intestine with fistula 05/06/2014 Resolved Problems Problem Noted Date Diagnosed Date Resolved Date Perianal fistula due to Crohn's disease 02/24/2021 12/20/2023 Overview (02/24/2021): Added automatically from request for surgery [id number] Anal fistula 02/27/2019 12/29/2023 Assessment & Plan (02/24/2021 12:04 PM EDT): Relevant Hx: Perianal Crohns Course: Stable Today's Plan: Now with ongoing drainage and mild tenderness Will plan for EUA and seton exchage in the OR at [facility] Encounters Date Type Department Care Team Description 01/24/2025 Telephone [facility] Medicine Specialties [address] [place] [address] Carrillo Santana, PharmD David biosim 01/22/2025 1:20 PM EDT Office Visit [facility] Medicine Specialties [address] [place] [address] Mansi Méndez, PA Crohn's disease of both small and large intestine with fistula (CMS/HCC) (Primary Dx); Long-term current use of ustekinumab; History of resection of terminal ileum; Low serum vitamin B12 01/22/2025 Travel 12/06/2024 Telephone [facility] Medicine Specialties [address] [place] [address] Rosy Elena Prior-authorization/i nsurance Verification from Last 3 Months Immunizations Immunization Administration Dates Next Due Hep A, Adult 12/21/2018,06/26/2018 Hep B, Adolescent or Pediatric 06/26/2018 Influenza, Unspecified 10/03/2019 Influenza, injectable, quadr ivalent, preservative free 07/12/2021,06/16/2020,06/26/2018,2016 Tdap 07/12/2021 Family History Medical History Relation Name Comments Cardiac disorder Father Conversions - Other Father Circulat ion problem Bladder cancer Mother Relation Name Status Comments Father Mother Social History Tobacco Use Types Packs/Day Years Used Date Smoking Tobacco: Former Cigarettes 1 24 0 09/11/1994 - 09/11/2018 Passive Smoke Exposure: Past Smokeless Tobacco: Never Tobacco Cessation:Counseling Given: Not Answered Comments:Vapor Alcohol Use Standard Drinks/Week Comments No [...] Orientation Straight 05/27/2022 7: 26 AM EDT Last Filed Vital Signs Vital Sign Reading Time Taken Comments Blood Pressure 102/59 12/29/2023 12:40 PM EDT Pulse 66 12/29/2023 12:40 PM EDT Temperature 36.7 C (98 F) 12/29/2023 12:40 PM EDT Respiratory Rate 12 12/29/2023 12:40 PM EDT Oxygen Saturation 100% 12/29/2023 12:40 PM EDT Inhaled Oxygen Concentration - - Weight 73.9 kg (163 lb) 01/22/2025 1:04 PM EDT Height 175.3 cm (5' 9 ) 01/22/2025 1:04 PM EDT Body Mass Index 24.07 01/22/2025 1:04 PM EDT Plan of Treatment Upcoming Encounters Date Type Department Care Team (Late st Contact Info) Description 07/25/2025 8:20 AM EST Office Visit [facility] Medicine Specialties [address] [place] [address] Mansi Méndez PA [address] [place] [address] Health Maintenance Due Date Last Done Comments [facility]-HIV Screening 1984 [facility]-/Child/Adol SDOH Screenings 1984 [facility]-Varicella Vaccines (1 of 2 - 13+ 2-dose series) 1997 HPV Vaccines (1 - 3-dose series) 1999 [facility]- SDOH Screenings 2002 [facility]-Adult SDOH Screenings 2002 [facility]-Hepatitis B Vaccines (2 of 3 - 19+ 3-dose series) 07/24/2018 06/26/2018 BMI-AUCTY-40 Vaccine (1 - season) 2024 [facility]-Influenza Vaccine (Season Ended) 2025 07/12/2021, 06/16/2020, 10/03/2019, Additional history exists [facility]-Depression Screening 01/22/2026 025, 01/22/2025, 10/18/2022 [facility]-DTaP,Tdap,and Td Vaccines (2 - Td or Tdap) 07/12/2031 07/12/2021 [facility]-Zoster Vaccines (1 of 2) 2034 [facility]-Hepatitis A Vaccines Aged Out 12/21/2018, 06/11 No longer eligible based on patient's age to complete this topic [facility]-Hepatitis C Screening Completed 01/18/2021 [facility]-HIB Vaccines Aged Out No longer e ligible based on patient's age to complete this topic [facility]-IPV Vaccines Aged Out No longer e ligible based on patient's age to complete this topic [facility]-Pneumococcal Vaccine: Pediatrics (0 to 5 Years) and At-Risk Patients (6 to 49 Years) Aged Out No longer eligible based on patient's age to complete this topic [facility]-Rotavirus Vaccines Aged Out No lo nger eligible based on patient's age to complete this topic Insurance [facility] Care Teams Customer Account Manager Relationship Specialty Start Date End Date Jayson Hoy[place] [address] PCP - General 01/22/21
--- OUTSIDE RECORDS SUMMARY | 2025-02-20 14:53 | XMS_ITS | Encounter Summary ---
Author Organization [facility] Address [address] [place] [address] Care Team Providers Care Donor Specialist Name Role Phone Jayson Hoyt Primary Care Provider Reason for Visit * Reason Onset Date Comments David martinez 01/24/2025 Encounter Details Date Type Department Care Team (Late Contact Info) Description 01/24/2025 Telephone [facility] Medicine Specialties [address] [place] [address] Carrillo Santana, PharmD Stedemarcus biosmartha Social History Tobacco Use Types Packs/Day Years [...] Encounters Date Type Department Care Team (Late Contact Info) Description 07/25/2025 8:20 AM EST Office Visit [facility] Medicine Specialties [address] [place] [address] Mansi Méndez PA [address] [place] [address] documented as of this encounter [...] documented as of this encounter Care Teams Donor Specialist Relationship Specialty Start Date End Date Jayson Hoyt PA [address] [place] [address] PCP - General 01/22/21 documented as of this encounter
--- OUTSIDE RECORDS SUMMARY | 2025-02-20 14:53 | XMS_ITS | Encounter Summary ---
Author Organization Healthcare Address [address] [place] [address] Care Team Providers Care Field Marketing Specialist Name Role Phone Jayson Hoyt Primary Care Provider Reason for Visit * Reason Comments Med Refill Encounter Details Date Type Department Care Team (Late st Contact Info) Description 05/22/2022 Refill [facility] Medicine Specialties [address] [place] [address] Amadou Adam MD [address] [place] [address] Social History Tobacco Use Types Packs/Day Years Used Date Smoking Tobacco: Former Cigarettes 1 2018 Smokeless Tobacco: Never Comments:Vapor Alcohol Use Standard Drinks/Week Comments No 0 (1 standard drink = 0.6 oz pur e alcohol) PHQ-2 Answer Date Recorded Patient Health Questionnaire-2 Score 0 02/15/2022 Comments Unknown Sex and Gender Information Value Date Recorded Sex Assigned at Female 03/25/2021 6:04 AM EDT Legal Sex Female 6:39 PM EDT Gender Identity Female 03/25/2021 6:04 AM EDT Sexual Orientation Straight 05/27/2022 7: 26 AM EDT COVID-19 Exposure Response Date Recorded In the last 10 days, have yo u been in contact with someone who was confirmed or suspected to have Coronavirus/COVID-19? No / Unsure 05/11/2022 9:10 AM EDT documented as of this encounter Miscellaneous Notes * Telephone Encounter - Salvatore Almanza - 05/23/2022 8:12 AM EDT Per protocol, 1 medication(s), ferrous sulfate, has been approved for 30 day supply with 2 refill(s). The medication refill request(s) has been sent to [facility]. documented in this encounter Plan of Treatment Upcoming Encounters Date Type Department Care Team (Late st Contact Info) Description 07/25/2025 8:20 AM EST Office Visit [facility] Medicine Specialties [address] [place] [address] Mansi Méndez PA [address] [place] [address] documented as of this encounter Visit Diagnoses Not on filedocumented in this encounter Additional Health Concerns Infection Onset Date Last Indicated Resolved Time C. difficile 09/28/2021 09/28/2021 08/08/2022 9:14 AM EST Assessment Noted Time A fall risk assessment has been complete d for the patient 05/11/2022 9:20 AM EDT documented as of this encounter Care Teams Field Marketing Specialist Relationship Specialty Start Date End Date Jayson Hoyt PA [address] [place] [address] PCP - General 01/22/21 documented as of this encounter
[2025-02-20 14:58] LABS: Albumin Level 4.3 g/dl (3.5-5.0); Chloride 105 mmol/L (98-107); Potassium 4.8 mmoL/L (3.5-5.1); Sodium 136 mmol/L (136-145)
[2025-02-20 15:01] LABS: Alanine Aminotransferase 13 U/L (12-78); Albumin/Globulin Ratio 1.5 (1.1-1.8); Alkaline Phosphatase 59 U/L (38-126); Anion Gap 8.8 mEq/L (5-15); Aspartate Amino Transferase 26 U/L (14-36); Bilirubin,Total 0.4 mg/dl (0.2-1.3); Blood Urea Nitrogen 20 mg/dl (7-17); Calcium 10.6 mg/dl (8.4-10.2); Carbon Dioxide 27 mmol/L (22.0-30.0); Estimated Glomerular Filt Rate 61 ml/min (>60); GFR (African American) 74 ML/MIN (>60); Globulin 2.8 g/dL (1.3-3.2); Glucose 113 mg/dl (74-100); Total Protein,Serum 7.1 g/dl (6.3-8.2)
[2025-02-20 15:07] LABS: C-Reactive Protein 0.5 mg/L (0-4)
== END 2025-02-20 23:59 | disposition home or self-care (01) ==
LOC: LAB 13:59
PROVIDERS: Visit Provider Dietitian, Registered
DX: K50.813 Crohn's disease of both small and large intestine with fistula (principal); Z79.899 Other long term (current) drug therapy
CPT/HCPCS: 36415; 80053; 85025; 86140